=== PATIENT | male | born 1990 | race Caucasian/White ===

== ENCOUNTER → 2022-04-12 16:12 | Outpatient (BNVA) | payer OTHER, SELFPAY | PROVIDERS: Family Provider Nurse Practitioner; Visit Provider Nurse Practitioner Family | DX: R20.2 Paresthesia of skin (principal); R05.9 Cough, unspecified; R51.9 Headache, unspecified; E66.9 Obesity, unspecified; Z13.220 Encounter for screening for lipoid disorders; Z13.6 Encounter for screening for cardiovascular disorders; F41.9 Anxiety disorder, unspecified; J30.2 Other seasonal allergic rhinitis; R00.2 Palpitations | CPT/HCPCS: 80053; 80061; 83036; 84443 ==

== ENCOUNTER → 2022-08-22 17:32 | Outpatient (BNVA) | payer OTHER, SELFPAY | PROVIDERS: Family Provider Nurse Practitioner; Visit Provider Nurse Practitioner Family | DX: K59.00 Constipation, unspecified (principal); J30.2 Other seasonal allergic rhinitis; R00.2 Palpitations; E78.2 Mixed hyperlipidemia; I10 Essential (primary) hypertension; F41.9 Anxiety disorder, unspecified; J32.0 Chronic maxillary sinusitis | CPT/HCPCS: 80053; 80061 ==

== ENCOUNTER 2022-11-28 06:59 | Outpatient (CLI) | payer OTHER, SELFPAY ==
--- NOTE | 2022-11-28 07:15 | US_ITS ---
WS: [id number] SCROTAL ULTRASOUND EXAMINATION CLINICAL INFORMATION: lump left testicle COMPARISON: None. FINDINGS: TESTES Small LEFT testicular cyst measuring 3.5 x 2.2 x 3.8 mm. This likely corresponds to the palpable area of concern. Right testes size: 4.2 cm x 3.6 cm x 2.8 cm. Left testes size: 4.7 cm x 3.0 cm x 2.7 cm. EPIDIDYMIDES RIGHT epididymal cyst measuring 5.7 x 8.6 x 5.7 mm Right epididymis size: 0.6 cm x 1.0 cm x 1.3 cm. Left epididymitis size: 0.5 cm x 0.6 cm x 1.1 cm. HYDROCELE None. VARICOCELE None. OTHER FINDINGS None. US/US scrotum [id number] IMPRESSION: 1. Small LEFT testicular cyst measuring 3.5 x 2.2 x 3.8 mm 2. RIGHT epididymal cyst measuring 5.7 x 8.6 x 5.7 mm
== END 2022-11-28 07:00 | disposition home or self-care (01) ==
PROVIDERS: Family Provider Nurse Practitioner; Visit Provider Nurse Practitioner Family
DX: N50.89 Other specified disorders of the male genital organs (principal); E78.2 Mixed hyperlipidemia; R73.9 Hyperglycemia, unspecified; I10 Essential (primary) hypertension; R00.2 Palpitations; F41.9 Anxiety disorder, unspecified; E66.9 Obesity, unspecified; N44.2 Benign cyst of testis
CPT/HCPCS: 76870; 80053; 80061; 85025

== ENCOUNTER → 2023-05-09 16:32 | Outpatient (BNVA) | payer OTHER, SELFPAY | PROVIDERS: Family Provider Nurse Practitioner; Visit Provider Nurse Practitioner Family | DX: R68.89 Other general symptoms and signs (principal); I10 Essential (primary) hypertension; E78.2 Mixed hyperlipidemia; F41.9 Anxiety disorder, unspecified; R53.83 Other fatigue | CPT/HCPCS: 80053; 80061; 82306; 82607; 82746 ==

== ENCOUNTER → 2023-09-27 14:00 | Outpatient (BNVA) | payer OTHER, SELFPAY | PROVIDERS: Family Provider Nurse Practitioner; PCP Nurse Practitioner Family; Visit Provider Nurse Practitioner Family | DX: I10 Essential (primary) hypertension (principal); E78.2 Mixed hyperlipidemia; F41.9 Anxiety disorder, unspecified; E55.9 Vitamin D deficiency, unspecified | CPT/HCPCS: 80053; 80061; 82306 ==

== ENCOUNTER → 2024-10-01 14:18 | Outpatient (BNVA) | payer OTHER, SELFPAY | PROVIDERS: Family Provider Nurse Practitioner; PCP Nurse Practitioner Family; Visit Provider Nurse Practitioner Family | DX: I10 Essential (primary) hypertension (principal) | CPT/HCPCS: 80053; 80061; 82306; 82607; 83036; 84443; 85025 ==

== ENCOUNTER → 2024-12-30 14:31 | Outpatient (BNVA) | payer OTHER, SELFPAY | PROVIDERS: PCP Nurse Practitioner Family; Visit Provider Nurse Practitioner Family | DX: E11.9 Type 2 diabetes mellitus without complications (principal) | CPT/HCPCS: 80053; 80061; 82607; 83036; 85025 ==

== ENCOUNTER → 2025-08-26 15:14 | Outpatient (BNVA) | payer OTHER, SELFPAY | PROVIDERS: PCP Nurse Practitioner Family; Visit Provider Nurse Practitioner Family | DX: E11.9 Type 2 diabetes mellitus without complications (principal) | CPT/HCPCS: 80053; 80061; 82043; 82306; 82607; 83036; 84443; 85025 ==

== ENCOUNTER 2025-09-15 09:44 | Outpatient (CLI) | payer OTHER, SELFPAY ==
--- NOTE | 2025-09-15 10:00 | US_ITS ---
WS: [id number] RIGHT UPPER QUADRANT ULTRASOUND HISTORY: R79.89 - Other specified abnormal findings of blood chemi... COMPARISON: None available. Liver: 17.4 cm in length. Mildly enlarged liver with mild hepatic steatosis. No mass. Portal Vein: Normal hepatopetal flow with monophasic waveform. Gallbladder: Normally distended gallbladder with no stones or wall thickening. CBD: 0.5 cm Pancreas: Completely obscured. Right kidney: 12.2 cm in length. Normal size and echogenicity. No hydronephrosis or mass. Aorta and IVC: Unremarkable abdominal aorta and IVC. No ascites. US/US liver [id number] IMPRESSION: 1. Mildly enlarged liver with areas of hepatic steatosis and focal fatty spari ng. 2. Normal gallbladder. 3. Obscured pancreas.
== END 2025-09-15 09:45 | disposition home or self-care (01) ==
LOC: RAD 09:45
PROVIDERS: PCP Nurse Practitioner Family; Visit Provider Nurse Practitioner Family
DX: R79.89 Other specified abnormal findings of blood chemistry (principal); K76.0 Fatty (change of) liver, not elsewhere classified; K86.89 Other specified diseases of pancreas; R16.0 Hepatomegaly, not elsewhere classified
CPT/HCPCS: 76705